=== PATIENT | female | born 1980 | race Caucasian/White ===

== ENCOUNTER 2021-06-19 03:19 | Emergency (ER) | payer OTHER ==
[~2021-06-19] VITALS: Ht 157.5 cm; Wt 72.6 kg
[~2021-06-19 03:19] MED LIST: ACCUNEB SO1.25 MG/1 IH; ADVAIR 100-501 EACH INH; ALBUTEROL INH; ALBUTEROL2.5 MG/0.1 IH; AZITHROMYCIN 2250 MG PO; CLARITIN10 MG PO; DESYREL100 MG PO; LEXAPRO20 MG PO; MUCINEX22 ML NS; NEXIUM40 MG PO; NORCO 5-325 TA1 EACH PO; ORTHO TRI-CYCL1 EAC1 PO; PERCOCET 5-3251 EACH PO; PREDNISONE 20 M20 MG PO; PREDNISONE50 MG PO; PROVENTIL HFA6.7 G1 INH; PROVENTIL17 G1 IH; SINGULAIR 10 MG10 M1 PO; STERAPRED DS10 MG PO; XANAX XR1 MG PO; ZOLOFT100 MG PO
[2021-06-19] MEDS ORDERED: NAPROSYN500 MG PO (04:18)
[2021-06-19] MEDS ORDERED: NORCO5 PO (04:18)
[2021-06-19] MEDS ORDERED: NORVASC10 MG PO (04:54)
[2021-06-19 05:36] VITALS: BP 135/77
--- NOTE | 2021-06-22 07:13 | EKG ---
[address] [place] [address] ELECTROCARDIOGRAM REPORT Name: ANATOLIY ORTIZ Room #: [facility] Lloyd#: [id number] Admission: 06/19/21 Attend Phys: Discharge: 06/19/21 Date of : 82 Report #: [id number] [facility] ED Test Date: 2021-06-19 Test Time: 03:43:50 Pat Name: ANATOLIY ORTIZ Department: Room: Gender: F Concrete Mixer: MILES GREEN : 1980 Requested By: Miquel Matamoros Order Number: [id number] MD: Brandon Guerrero Measurements Intervals [place] Rate: 123 P: 51 W[place]: 128 QRS: 38 QRSD: 87 T: 59 QT: 329 QTc: 471 Interpretive Statements Sinus tachycardia Consider right atrial enlargement Compared to ECG 03/31/2012 04:23:38 Sinus rhythm no longer present Electronically Signed On 06-22-2021 7:13:28 WINE MAKER by Brandon Guerrero [email or web address] <ELECTRONICALLY SIGNED> By: Brandon Guerrero MD, [facility] 06/22/21 0713 [id number] Brandon Guerrero MD, FACC /EPI
== END 2021-06-19 05:21 | disposition home or self-care (01) ==
LOC: ER 03:19
PROVIDERS: Emergency Medicine
DX: I10 Essential (primary) hypertension (principal); F15.10 Other stimulant abuse, uncomplicated; Z79.51 Long term (current) use of inhaled steroids

== ENCOUNTER 2021-08-18 22:16 | Emergency (ER) | payer OTHER ==
[~2021-08-18] VITALS: Ht 165.1 cm; Wt 79.4 kg
[~2021-08-18 22:16] MED LIST changes: +NAPROSYN500 MG PO; +NORCO5 PO; +NORVASC10 MG PO
--- NOTE | 2021-08-19 11:30 | EKG ---
[facility] [place] [address] ELECTROCARDIOGRAM REPORT Name: ANATOLIY ORTIZ Room #: [facility] Lloyd#: [id number] Admission: 08/18/21 Attend Phys: Discharge: 08/18/21 Date of : [birth year] Report #: [id number] [facility] ED Test Date: 2021-08-18 Test Time: 22:19:54 Pat Name: ANATOLIY ORTIZ Department: Room: Gender: F Tunneller: CLARISSE : 1980 Requested By: Miquel Matamoros Order Number: [id number] MD: Brandon Guerrero Measurements Intervals [place] Rate: 104 P: 51 [place]: 147 QRS: 48 QRSD: 93 T: 44 QT: 353 QTc: 465 Interpretive Statements Sinus tachycardia LAE, consider biatrial enlargement Minimal ST depression, diffuse leads Baseline wander in lead(s) V1 Compared to ECG 06/19/2021 03:43:50 ST (T wave) deviation now present Electronically Signed On 08-19-2021 11:30:32 ENGINEERING PROGRAM MANAGER by Brandon Guerrero [email or web address] <ELECTRONICALLY SIGNED> By: Brandon Guerrero MD, [facility] 08/19/21 1130 18 18 Brandon Guerrero MD, [facility] /EPI
== END 2021-08-18 23:00 | disposition left against medical advice (07) ==
LOC: ER 22:16
DX: R07.89 Other chest pain (principal); Z79.51 Long term (current) use of inhaled steroids; Z79.899 Other long term (current) drug therapy